=== PATIENT | female | born 1990 | race African-American/Black ===

== ENCOUNTER 2016-09-16 09:34 | Emergency (ER) | payer OTHER ==
[~2016-09-16] VITALS: Ht 172.7 cm; Wt 125.6 kg
[~2016-09-16 09:34] MED LIST: ACET-704 PO; PROM25TA10 PO
--- NOTE | 2016-09-16 10:23 | PHYS DOC ---
Past Medical History Past Medical History: No Pertinent History Additional Past Medical Histor: H/A'S, obesity Past Surgical History: No Surgical History Alcohol Use: Occasionally Drug Use: Marijuana Adult General Chief Complaint Chief Complaint: LOWER EXT PAIN HPI HPI Patient is a 26 year old female presents to emergency department stating that she has having left knee pain and discomfort. Patient states that this pain and discomfort started yesterday when she was at work. She states that she has had knee problems in the past. 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 She states that she has increased pain around the knee anteriorly. There is slight swelling noted no redness noted peripheral pulses are 2+ cap refill brisk less than 2 seconds. Patient states that she is able to ambulate however she does have increased pain and discomfort. Review of Systems Review of Systems Constitutional: Denies fever or chills [] Eyes: Denies change in visual acuity, redness, or eye pain [] HENT: Denies nasal congestion or sore throat [] Respiratory: Denies cough or shortness of breath [] Cardiovascular: No additional information not addressed in HPI [] GI: Denies abdominal pain, nausea, vomiting, bloody stools or diarrhea [] : Denies dysuria or hematuria [] Musculoskeletal: Denies back pain. Complaint of left knee pain and discomfort. Integument: Denies rash or skin lesions [] Neurologic: Denies headache, focal weakness or sensory changes [] Endocrine: Denies polyuria or polydipsia [] Current Medications Current Medications Current Medications Medications (Trade) Dose Ordered Sig/Renetta Start Time Stop Time Status Last Admin Dose Admin Ibuprofen (Motrin) 800 mg 1X ONCE 09/16/16 10:30 09/16/16 10:31 DC 09/16/16 10:33 800 MG Allergies Allergies Allergies Coded Allergies Type Severity Reaction Last Updated Verified aspirin Allergy Intermediate tolerates Ibuprofen and Ketorolac 08/03/14 Yes Physical Exam Physical Exam Constitutional: Well developed, well nourished, no acute distress, non-toxic appearance. [] HENT: Normocephalic, atraumatic, bilateral external ears normal, oropharynx moist, no oral exudates, nose normal. [] Eyes: PERRLA, EOMI, conjunctiva normal, no discharge. [] Neck: Normal range of motion, no tenderness, supple, no stridor. [] Cardiovascular:Heart rate regular rhythm Lungs & Thorax: No respiratory distress noted Skin: Warm, dry, no erythema, no rash. [] Back: No tenderness Extremities: Left knee tenderness, no cyanosis, no clubbing, ROM intact, no edema. Patient was able to bend the knee to almost a 90 angle with pain and discomfort noted with movement. Patient with a positive valgus, positive arcus. Negative Rhina peripheral pulses 2+ cap refill brisk less than 2 seconds. Neurologic: Alert and oriented X 3, normal motor function, normal sensory function, no focal deficits noted. [] Psychologic: Affect normal, judgement normal, mood normal. [] Current Patient Data Vital Signs Vital Signs Date Time Temp Pulse Resp B/P (MAP) Pulse Ox O2 Delivery O2 Flow Rate FiO2 09/16/16 09:44 98.4 78 16 96 Room Air 98.4 EKG EKG [] Radiology/Procedures Radiology/Procedures [][facility] [address] [place] [address] IMAGING REPORT Signed PATIENT: JUNAID HUNTLEY ACCOUNT: [id number] : 1990 LOCATION: ER AGE: 26 SEX: F EXAM STATUS: REG ER ORD. PHYSICIAN: PRIYA BETHEA APRN REASON: pain and swelling PROCEDURE: KNEE LEFT 4V Left knee, 4 views, 09/16/2016: History: Knee pain No fracture or or dislocation is identified. There is mild spurring at the patellofemoral articulation. No other significant arthritic change is seen. There is mild subcutaneous edema anteriorly. IMPRESSION: 1. Mild patellofemoral degenerative change. 2. No acute bony abnormality is detected. DICTATED and SIGNED BY: ANGIE PABLO MD DATE: 09/16/16 1020 CC: PRIYA BETHEA APRN; NO PCP; NON,STAFF ~ Course & Med Decision Making Course & Med Decision Making Pertinent Labs and Imaging studies reviewed. (See chart for details) X-rays were negative for any bony abnormalities. However there was degenerative changes noted. Patient was provided with ibuprofen here in the emergency department. She'll be provided with a knee immobilizer which she can wear to help with comfort. She was recommended to follow-up with orthopedic within the next week. Also recommended ibuprofen 800 mg every 8 hours with food stop taking few develop an upset stomach. Ice packs on 20 minutes off 20 minutes several times a day. Patient will be discharged home in stable condition signs and symptoms to return back to emergency department been provided. [] Dragon Disclaimer Dragon Disclaimer This electronic medical record was generated, in whole or in part, using a voice recognition dictation system. Departure Departure Impression: Primary Impression: Knee pain, left Disposition: 01 HOME, SELF-CARE Condition: STABLE Referrals: NO PCP (PCP) GIOVANNA ABRAHAM II, MD Patient Instructions: Knee Immobilizer, [id number], Knee Pain, [id number] Additional Instructions: Activity as tolerated Ibuprofen 800 mg every 8 hours with food stop taking if you develop upset stomach Wear the knee immobilizer for comfort Ice packs on 20 minutes and off 20 minutes several times a day Elevation as much as possible Followup with orthopedic in 1 week Return to emergency department as needed for signs and symptoms that become worse. PRIYA BETHEA COMPLAINT INVESTIGATOR Sep 16, 2016 10:23
[2016-09-16] MEDS ORDERED: IBUPROFEN 800 MG TABLET. PO ONE (10:30)
[2016-09-16 10:55] VITALS: BP 133/85
== END 2016-09-16 11:14 | disposition home or self-care (01) ==
LOC: ER 09:34
DX: M25.562 Pain in left knee (principal); F12.10 Cannabis abuse, uncomplicated; E66.9 Obesity, unspecified; Z68.41 Body mass index [BMI] 40.0-44.9, adult; Z88.6 Allergy status to analgesic agent
CPT/HCPCS: 29505; 73564; 99284-25

== ENCOUNTER 2017-09-12 10:00 | Emergency (ER) | payer OTHER ==
[2017-09-12 10:55] LABS: ADD MAN DIFF? NO
[2017-09-12 10:58] LABS: BASO # 0.1 x10^3/uL (0.0-0.2); BASO % 1 % (0-3); EOS # 0.2 x10^3/uL (0.0-0.7); EOS % 2 % (0-3); HEMATOCRIT 35.7 % (36.0-47.0); HEMOGLOBIN 12.1 g/dL (12.0-15.5); LYMPH % 14 % (24-48); MEAN CORPUSCULAR HEMOGLOBIN 31 pg (25-35); MEAN CORPUSCULAR HGB CONC 34 g/dL (31-37); MEAN CORPUSCULAR VOLUME 92 fL (79-100); MONO # 0.8 x10^3/uL (0.0-1.1); MONO % 6 % (0-9); NEUT # 10.7 x10^3uL (1.8-7.7); NEUT % 77 % (31-73); PLATELET COUNT 327 x10^3/uL (140-400); RED CELL DISTRIBUTION WIDTH 12.7 % (11.5-14.5); WHITE BLOOD COUNT 13.8 x10^3/uL (4.0-11.0)
[2017-09-12 11:22] LABS: ANION GAP 6 (6-14); BLOOD UREA NITROGEN 5 mg/dL (7-20); BUN/CREATININE RATIO 10 (6-20); CALCIUM 8.4 mg/dL (8.5-10.1); CARBON DIOXIDE 23 mmol/L (21-32); CHLORIDE 103 mmol/L (98-107); CREATININE 0.5 mg/dL (0.6-1.0); GFR 176.5; GLUCOSE 87 mg/dL (70-99); POTASSIUM 3.7 mmol/L (3.5-5.1); SODIUM 132 mmol/L (136-145)
[2017-09-12] MEDS: IV NORMAL SALINE 1000ML BAG 1,000 ML IV ×2 (11:22→13:04)
[2017-09-12] MEDS: ONDANSETRON PF 4 MG/2 ML VIAL. IV (11:22)
[2017-09-12 11:25] LABS: ALBUMIN 2.6 g/dL (3.4-5.0); ALBUMIN/GLOBULIN RATIO 0.7 (1.0-1.7); ALK PHOS 55 U/L (46-116); ALT (SGPT) 17 U/L (14-59); AST (SGOT) 14 U/L (15-37); TOTAL BILIRUBIN 0.2 mg/dL (0.2-1.0); TOTAL PROTEIN 6.6 g/dL (6.4-8.2)
[2017-09-12 11:41] LABS: URINE HCG POC HCG POSITIVE (Negative)
[2017-09-12 11:48] LABS: BILIRUBIN,URINE NEGATIVE (NEG); CLARITY,URINE CLEAR; COLOR,URINE YELLOW; GLUCOSE,URINE NEGATIVE (NEG); NITRITE,URINE NEGATIVE (NEG); PH,URINE 7.5; PROTEIN,URINE NEGATIVE (NEG-TRACE); UROBILINOGEN,URINE 0.2 mg/dL (0.2 mg/dL)
[2017-09-12 11:58] LABS: BACTERIA,URINE FEW /HPF (0-FEW); RBC,URINE 0 /HPF (0-2); SQUAMOUS EPITHELIAL CELL,UR MOD /LPF
== END 2017-09-12 13:38 | disposition left against medical advice (07) ==
LOC: ER 10:00
DX: O26.892 Other specified pregnancy related conditions, second trimester (principal); R42 Dizziness and giddiness; R10.9 Unspecified abdominal pain; Z87.891 Personal history of nicotine dependence; Z3A.15 15 weeks gestation of pregnancy; Z88.6 Allergy status to analgesic agent
CPT/HCPCS: 36415; 76801; 80053; 81001; 81025; 84702; 85025; 86900; 86901; 96361; 96374; 99285-25; J2405; J7030

== ENCOUNTER 2018-01-29 11:06 | Observation (INO) | payer OTHER ==
[2017-09-12 13:10] VITALS: BP 127/61
[2018-01-29 12:54] LABS: BILIRUBIN,URINE NEGATIVE (NEG); CLARITY,URINE CLEAR; COLOR,URINE YELLOW; NITRITE,URINE NEGATIVE (NEG); PH,URINE 6.5; PROTEIN,URINE NEGATIVE (NEG-TRACE)
[2018-01-29 12:58] LABS: AMPHETAMINE/METHAMPHETAMINE NEG (NEG); BARBITURATES NEG (NEG); BENZODIAZEPINES NEG (NEG); CANNABINOIDS NEG (NEG); COCAINE NEG (NEG); METHADONE NEG (NEG); OPIATES NEG (NEG); PHENCYCLIDINE NEG (NEG)
[2018-01-29] MEDS ORDERED: IV RINGERS,LACTATED 1000ML 1,000 ML IV SCH (13:00)
[2018-01-29 13:28] LABS: SQUAMOUS EPITHELIAL CELL,UR FEW /LPF
[2018-01-29 13:30] LABS: BACTERIA,URINE FEW /HPF (0-FEW); RBC,URINE OCC /HPF (0-2)
[2018-01-29] MEDS ORDERED: BUTORPHANOL 2 MG/ML VIAL. IV ONE (14:30)
== END 2018-01-29 16:30 | disposition home or self-care (01) ==
LOC: 3 SO LND 11:06
PROVIDERS: ADMIT Obstetrics & Gynecology; ATTEND Obstetrics & Gynecology
DX: O26.893 Other specified pregnancy related conditions, third trimester (principal); R10.9 Unspecified abdominal pain; Z3A.34 34 weeks gestation of pregnancy; Z79.899 Other long term (current) drug therapy
CPT/HCPCS: 80307; 81001; 87086; 96374; G0378; G0379; J7120

== ENCOUNTER → 2021-05-26 | Outpatient (CLI) | payer MEDICAID ==
[2017-09-12 13:10] VITALS: BP 127/61
--- NOTE | 2021-05-26 10:54 | KCIC ---
EXAM: Lumbar spine, 5 views. HISTORY: Pain and epidural site. COMPARISON: None. FINDINGS: 5 views of the lumbar spine are obtained. There is no listhesis. The vertebral bodies are n ormal in height and the disc spaces are preserved. There is nonspecific subchondral sclerosis involvi ng the sacroiliac joints. There is an intrauterine contraceptive device overlying the pelvis. IMPRESSION: No acute osseous finding. Electronically signed by: Amairani Rosenbaum MD (05/26/2021 10:51 AM) [id number]
== END ==
LOC: KCIC 10:07
PROVIDERS: ATTEND Family Medicine
DX: M54.50 Low back pain, unspecified (principal); M79.605 Pain in left leg; Z97.5 Presence of (intrauterine) contraceptive device
CPT/HCPCS: 72110

== ENCOUNTER 2021-06-21 13:03 | Emergency (ER) | payer MEDICAID ==
[~2021-06-21] VITALS: Ht 170.2 cm; Wt 127.7 kg
[2021-06-21 13:20] VITALS: BP 159/94
[2021-06-21] MEDS ORDERED: LIDOCAINE (700MG/PATCH) PATCH. TD ONE (13:30)
[2021-06-21] MEDS ORDERED: ORPHENADRINE CITRATE 60 MG/2 ML VIAL. IM ONE (13:30)
[2021-06-21] MEDS ORDERED: KETOROLAC 30 MG/ML VIAL. IM ONE (13:30)
[2021-06-21] MEDS ORDERED: ORPH100T PO (15:35)
--- NOTE | 2021-06-21 15:35 | PHYS DOC ---
Past Medical History Additional Past Medical Histor: H/A'S, obesity Past Surgical History: Smoking Status: Former Smoker Alcohol Use: None Drug Use: Marijuana General Adult EDM: Chief Complaint: BACK PAIN OR INJURY HPI: HPI: Patient is a 31 year old female who presents with low back pain. Patient states she has had this pain for about 1 month. She saw her primary care provider, Dr. Lima, who took x-rays. There were no acute findings. She was not prescribed any medication at that time. When she woke up today, she states the pain has been much worse and comes in waves with spasm. 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 Patient states that the pain sometimes does radiate down her left leg. She denies saddle anesthesia, bowel or bladder incontinence, IV drug use. Patient has no other complaints at this time. Review of Systems: Review of Systems: ROS negative or noncontributory except as mentioned in HPI. Heart Score: C/O Chest Pain: No Current Medications: Current Medications Medications (Trade) Dose Ordered Sig/Renetta Start Time Stop Time Status Last Admin Dose Admin Ketorolac Tromethamine (Toradol 30mg Vial) 30 mg 1X ONCE 06/21/21 13:30 06/21/21 13:37 DC 06/21/21 14:41 30 MG Lidocaine (Lidoderm) 1 patch 1X ONCE 06/21/21 13:30 06/21/21 13:33 DC 06/21/21 14:38 1 PATCH Orphenadrine Citrate (Norflex) 60 mg 1X ONCE 06/21/21 13:30 06/21/21 13:33 DC 06/21/21 14:39 60 MG Allergies: Allergies: Allergies Coded Allergies Type Severity Reaction Last Updated Verified aspirin Allergy Intermediate tolerates Ibuprofen and Ketorolac 08/03/14 Yes Physical Exam: PE: Constitutional: Well developed, well nourished, non-toxic appearance, patient is intermittently tearful. HENT: Normocephalic, atraumatic, bilateral external ears normal, nose normal. Eyes: EOMI, conjunctiva normal, no discharge. Neck: Normal range of motion, no stridor. Skin: Warm, dry, no erythema, no rash. Back: No step-off, no midline/bony tenderness, lumbar paraspinal tenderness with underlying spasm appreciated. Extremities: No tenderness, no cyanosis, no clubbing, ROM intact, no edema. Neurologic: Alert and oriented x4, normal motor function, normal sensory function, steady and symmetrical upright gait, no focal deficits noted. Current Patient Data: Vital Signs: Vital Signs Date Time Temp Pulse Resp B/P (MAP) Pulse Ox O2 Delivery O2 Flow Rate FiO2 06/21/21 13:20 98.7 79 18 159/94 (115) 98 Room Air 98.7 Course & Med Decision Making: Course & Med Decision Making Pertinent Labs and Imaging studies reviewed. (See chart for details) Patient pain was greatly improved after administration of Toradol, Norflex and lidocaine patch. Patient is comfortable going home with prescription for Norflex and using [id number] naproxen and lidocaine patches. Return precautions were provided patient should follow-up with her primary care doctor. Patient understands and is agreeable to discharge plan. Dragon Disclaimer: [employer] Disclaimer: This electronic medical record was generated, in whole or in part, using a voice recognition dictation system. Departure Departure Impression: Primary Impression: Low back pain Qualified Codes: M54.50 - Low back pain, unspecified Additional Impression: Elevated blood pressure reading Disposition: HOME / SELF CARE / HOMELESS Condition: IMPROVED Referrals: Rajani LIMA MD (PCP) Patient Instructions: Back Exercises, Txnw-[id number], Back Pain, Adult, [id number] Additional Instructions: EMERGENCY DEPARTMENT GENERAL DISCHARGE INSTRUCTIONS Thank you for coming to [facility] Emergency Department (ED) today and trusting us with you care. We trust that you had a positive experience in our Emergency Department. If you wish to speak to the department management, you may call the director at . YOUR FOLLOW UP INSTRUCTIONS ARE FOLLOWS: 1. Follow up with your primary care doctor. If you do not have a primary doctor, please ask for a resource list of physicians or clinics that may be able to assist you with follow up care. 2. The emergency provider has interpreted your imaging studies, if any were ordered. The radiology hemodialysis patient care specialist also reviewed them. If there is a change in the findings, you will be notified in 48 hours when at all possible. 3. If a lab test or culture has been done, your results will be reviewed and you will be notified if you need a change in treatment. 4. Follow instructions verbalized to you and refer to the printouts if needed. ADDITIONAL INSTRUCTIONS AND INFORMATION: 1. Your care today has been supervised by a physician who is specially trained in emergency care. Many problems require more than one evaluation for a complete diagnosis and treatment. We recommend that you schedule your follow up appointment as recommended to ensure complete treatment of you illness or injury. If you are unable to obtain follow up care and continue to have a problem, or if your condition worsens, we recommend that you return to the ED. 2. We are not able to safely determine your condition over the phone nor are we able to give sound medical advice over the phone. For these safety reasons, if you call for medical advice we will ask you to come to the ED for further evaluation. 3. If you have any questions regarding these discharge instructions please call the ED at . SAFETY INFORMATION: In the interest of safety, wellness, and injury prevention; we encourage you to wear your seat belt, if you smoke; quite smoking, and we encourage family to use a protective helmet for bicycling and other sporting events that present an increased risk for head injury. IF YOUR SYMPTOMS WORSEN OR NEW SYMPTOMS DEVELOP, OR YOU HAVE CONCERNS ABOUT YOUR CONDITION; OR IF YOUR CONDITION WORSENS WHILE YOU ARE WAITING FOR YOUR FOLLOW UP APPOINTMENT; EITHER CONTACT YOUR PRIMARY CARE DOCTOR, THE PHYSICIAN WHOSE NAME AND NUMBER YOU WERE GIVEN, OR RETURN TO THE ED IMMEDIATELY. Scripts Orphenadrine Citrate (ORPHENADRINE CITRATE) 100 Mg Tablet.er 1 TAB PO Q12HR, #20 TAB 0 Refills Prov: JAMA ABBOTT 06/21/21 JAMA ABBOTT Jun 21, 2021 15:35
== END 2021-06-21 15:47 | disposition home or self-care (01) ==
LOC: ER 13:03
DX: M54.50 Low back pain, unspecified (principal); R03.0 Elevated blood-pressure reading, without diagnosis of hypertension; M79.605 Pain in left leg; Z87.891 Personal history of nicotine dependence
CPT/HCPCS: 96372; 99284; J1885; J2360